=== PATIENT | male | born 1990 | race African-American/Black ===

== ENCOUNTER 2021-08-06 18:52 | Emergency (ER) | payer BC ==
[~2021-08-06] VITALS: Ht 180.3 cm; Wt 63.6 kg
[2021-08-06] MEDS ORDERED: LIDOCAINE/PF 1% 2 ML VIAL IM ONE (19:45)
[2021-08-06] MEDS ORDERED: CefTRIAXone SODIUM 1 GM/VIAL IM ONE (19:45)
[2021-08-06] MEDS ORDERED: DOXYCYCLINE HYCLATE 100 MG TABLET PO ONE (19:45)
[2021-08-06 20:03] VITALS: BP 121/63
== END 2021-08-06 21:01 | disposition home or self-care (01) ==
LOC: EMS 18:53
DX: A64 Unspecified sexually transmitted disease (principal)
CPT/HCPCS: 96372; 99283; J0696; J3490